=== PATIENT | female | born 1945 | race Caucasian/White ===

== ENCOUNTER 2019-07-11 08:52 | Day surgery (SDC) ==
[2019-07-03 10:14] LABS: URINE SOURCE CLEAN CATCH
[2019-07-03 10:17] LABS: BASO# 0.09 X1000 (0.0-0.2); BASO% 1.3 % (0.0-0.8); EOS# 0.26 X1000 (0.0-0.7); EOS% 3.7 % (0.0-10.0); HEMATOCRIT 46.4 % (37.0-47.0); HEMOGLOBIN 14.7 g/dL (12.0-16.0); LYMPH# 1.96 X1000 (1.2-3.4); MCH 27.9 PG (27-31); MCHC 31.7 g/dL (33-37); MCV 88.2 FL (81-99); MONO# 0.59 X1000 (0.11-0.59); MONO% 8.4 % (1.7-9.3); MPV 10.8 FL (7.4-10.4); NEUT% 58.6 % (42.2-75.2); PLT 249 X1000 (130-400); RBC 5.26 XMIL (4.2-5.4); RDW 13.9 % (11.5-14.5)
[2019-07-03 10:18] LABS: BILIRUBIN URINE NEGATIVE (NEGATIVE); BLOOD URINE NEGATIVE (NEGATIVE); COLOR YELLOW; GLUCOSE URINE NEGATIVE (NEGATIVE); KETONE URINE NEGATIVE (NEGATIVE); LEUKOCYTES URINE TRACE (NEGATIVE); NITRITE URINE NEGATIVE (NEGATIVE); PROTEIN URINE TRACE mg/dL (NEGATIVE); SP GRAVITY URINE 1.021; TURBIDITY URINE CLEAR (CLEAR); UR EPITHELIAL CELLS <10 /HPF (<10); URINE BACTERIA NEGATIVE /HPF; URINE RBC <10 /HPF (<10); URINE WBC <10 /HPF (<10); UROBILINOGEN URINE NORMAL (NORMAL)
[2019-07-03 10:23] LABS: INR 0.94; PROTIME 12.6 Seconds (11.0-16.0)
[2019-07-03 10:24] LABS: PTT 28.1 Seconds (22.3-41.8)
[2019-07-03 10:30] LABS: HEMOGLOBIN A1C 5.6 % (4.8-6.0)
[2019-07-03 11:27] LABS: AGAP 16; BUN 18 mg/dL (8-22); CALCIUM 9.5 mg/dL (8.8-10.2); CHLORIDE 99 mmol/L (98-107); COSMO 282; CREATININE 0.9 mg/dL (0.5-0.9); ESTIMATED GFR > 60; GLUCOSE 117 mg/dL (70-104); POTASSIUM 4.1 mmol/L (3.5-5.1); SODIUM 140 mmol/L (136-145); TCO2 25 mmol/L (25-35)
[2019-07-11] MEDS ORDERED: COLACE ONE (09:35)
[2019-07-11] MEDS ORDERED: PEPCID ONE (09:35)
[2019-07-11] MEDS ORDERED: REGLAN ONE (09:35)
[2019-07-11] MEDS ORDERED: CELEBREX ONE (09:35)
[2019-07-11] MEDS ORDERED: LYRICA ONE (09:35)
[2019-07-11] MEDS ORDERED: KEFZOL 1 GM/D5W 2 GM/100 ML IVPB ONE (09:36)
[2019-07-11] MEDS ORDERED: LR 1,000 ML ONE (09:36)
[2019-07-11] MEDS ORDERED: DURAMORPH ONE (09:59)
[2019-07-11] MEDS ORDERED: EXPAREL 1.3% ONE (09:59)
[2019-07-11] MEDS ORDERED: VANCOMYCIN ONE (09:59)
[2019-07-11] MEDS ORDERED: TORADOL ONE (09:59)
[2019-07-11] MEDS ORDERED: SODIUM CHLORIDE 0.9% ONE (09:59)
[2019-07-11] MEDS ORDERED: MARCAINE 0.25% PF ONE (09:59)
[2019-07-11] MEDS ORDERED: DIPRIVAN 1% ONE ×2 (10:07→11:18)
[2019-07-11] MEDS ORDERED: XYLOCAINE-MPF 2% ONE (10:08)
[2019-07-11] MEDS ORDERED: FENTANYL ONE (10:10)
[2019-07-11] MEDS: CYKLOKAPRON 1,000 MG/NS 2,000 MG/200 ML IVPB ONE ×2 (10:40→11:50)
[2019-07-11 11:32] LABS: URINE SOURCE CATH
[2019-07-11 11:35] LABS: BILIRUBIN URINE NEGATIVE (NEGATIVE); BLOOD URINE NEGATIVE (NEGATIVE); COLOR YELLOW; GLUCOSE URINE NEGATIVE (NEGATIVE); KETONE URINE NEGATIVE (NEGATIVE); LEUKOCYTES URINE NEGATIVE (NEGATIVE); NITRITE URINE NEGATIVE (NEGATIVE); PROTEIN URINE NEGATIVE (NEGATIVE); TURBIDITY URINE CLEAR (CLEAR); UROBILINOGEN URINE NORMAL (NORMAL)
[2019-07-11 11:36] LABS: UR EPITHELIAL CELLS <10 /HPF (<10); URINE BACTERIA NEGATIVE /HPF; URINE RBC <10 /HPF (<10); URINE WBC <10 /HPF (<10)
[2019-07-11] MEDS ORDERED: ZOFRAN ONE (11:49)
[2019-07-11] MEDS ORDERED: DECADRON ONE (11:49)
[2019-07-11] MEDS ORDERED: OFIRMEV 1000 MG/ISOTONIC SOLN 1,000 MG/100 ML BOTTLE ONE (11:53)
[2019-07-11] MEDS ORDERED: NS 1,000 ML ONE (12:58)
--- NOTE | 2019-07-11 13:01 | Diag Imaging Result Doc PS360 ---
EXAM: KNEE 1-2 VIEWS-LEFT INDICATION: post op TECHNIQUE: 2 views COMPARISON: None. FINDINGS: There has been a recent left knee arthroplasty. The arthroplasty hardware is in the expected position. There is no evidence of periprosthetic fracture. Anterior skin yu and a drainage catheter are in place. IMPRESSION: Satisfactory postoperative knee. Electronically signed by Conrado Hood 07/11/2019 12:58 PM
--- NOTE | 2019-07-11 13:28 | OPERATIVE NOTE ---
PROCEDURE DATE: 07/11/2019 PREOPERATIVE DIAGNOSIS: Degenerative arthritis left knee. POSTOPERATIVE DIAGNOSIS: Degenerative arthritis left knee. PROCEDURE: Left total knee arthroplasty with DePuy Attune size 4, narrow posterior stabilized femur, size 4 tibial tray, a 10 mm rotating platform tibial insert, and a 32 mm medialized anatomic patella. SURGEON: Eric Tay MD SHOT BLASTER: Yaneth Daniels who was necessary for proper retraction and manipulation of the extremity during the case, and improved efficiency. SECOND CERTIFIED PROCEDURAL CODER: Christine Estrada and Rowdy Unger RN. ANESTHESIA: Spinal. IV FLUIDS: 800 mL lactated Ringer's. ESTIMATED BLOOD LOSS: 25 mL. TOURNIQUET TIME: 75 minutes at 300 mmHg. COMPLICATIONS: None. INDICATIONS: The patient is a 74-year-old female with chronic history of worsening pain and discomfort of the left knee. Continued pain and discomfort despite appropriate nonoperative treatment. X-rays revealed degenerative osteoarthritis. Recommendation to proceed with left total knee arthroplasty was offered. Risks and benefits of surgery were explained, including the risks of anesthesia, , bleeding, infection, failure to relieve pain, postoperative stiffness, nerve injury, blood clots, and other imponderables. All questions were answered. The patient and patient's family wished to proceed with surgery. DETAILS OF PROCEDURE: Patient was taken to the operating room and underwent spinal anesthesia. After adequate anesthesia was obtained, she was placed supine on operating table. The left lower extremity was subsequently prepped and draped in usual sterile fashion. Esmarch was used to exsanguinate the left lower extremity. Tourniquet was inflated to 300 mmHg. A standard anterior incision made with skin knife. Medial and lateral skin envelopes were developed. Standard medial parapatellar arthrotomy was then performed. Patella fat pad was excised. Superior retractor was then placed. Approximately 1 cm anterior to the PCL insertion, a starting reamer was passed. Intramedullary guide with a distal femoral cutting block was pinned in position. The distal femoral cut was then performed in a standard fashion. A sizing block was placed and measured to a size 4. Corresponding pins were placed. A size 4 cutting block was pinned in position. Anterior, posterior, and chamfer cuts were then made. Attention then turned to the proximal tibia where using the extramedullary guide, the proximal tibia cutting block was pinned in position. It had good alignment and confirmed with the alignment ramiro. The proximal tibia was then resected. Medial and lateral menisci were excised. A curved osteotome was used to remove the posterior osteophytes off the distal femur. A spacer block was then placed and had good soft tissue balance both flexion and extension. Attention turned back to the proximal tibia where a size 4 tibial tray appeared to be the correct size. This was pinned in position. This followed by central reamer and a fin punch. A box cutting guide was then pinned on the distal femur. A box cut was performed. A trial femoral component was then placed. Two lug holes were drilled. Trial tibial insert was then placed and good soft tissue balancing. The patella everted and resected in a standard fashion. Patella was everted, and resected in a standard fashion. A size 32 appeared to be the correct size. Corresponding holes were drilled. A trial patella component then placed and had good patellofemoral tracking. The trial components were then removed. Copious irrigation was then performed with antibiotic pulsatile lavage. Vancomycin was mixed with cement on the back table. Sequential cementing was then performed first with the tibial tray and excess cement with a Comanche followed by the femoral component and excess cement removed with a Comanche followed by trial tibial insert in full extension. Axial loading was maintained while the cement cured. The patella component was cemented in a standard fashion. Patella clamp was placed. While cement was curing, Exparel was placed in deep soft tissue as well as the subcutaneous tissue. After cement had cured, peripheral cement was removed small osteotome. A 10 mm rotating platform tibial insert appeared to be the correct size. The trial insert was removed. Exparel was placed deep in the posterior capsule. The wound was copiously irrigated once again. A 10 mm rotating platform tibial insert was then placed. The knee was then carried through range of motion. Good range of motion and good soft tissue balance, and good patellofemoral tracking. A 1/8 Hemovac drain was placed but was not sewn in. Copious irrigation then performed once again with antibiotic pulsatile lavage. Number 1 Vicryl was used to repair the arthrotomy followed by 2- 0 Vicryl, subcutaneous tissue and skin yu. Adaptic, sterile 4 x 4's, Webril, cryo unit, Bunny wrap was applied to the left lower extremity. The patient tolerated the procedure well with no complications. Transferred to the recovery room in stable condition. cc: Eric Tay MD
[2019-07-11] MEDS ORDERED: OXY IR PO PRN ×2 (13:45)
[2019-07-11] MEDS ORDERED: ZOFRAN PO PRN (13:45)
[2019-07-11] MEDS: NS 1,000 ML IV SCH (14:33)
[2019-07-11] MEDS: REMERON PO SCH (14:33)
[2019-07-11] MEDS: NORVASC PO SCH (14:33)
[2019-07-11] MEDS: HYZAAR 50/12.5 MG PO SCH (14:33)
[2019-07-11] MEDS: TOPROL XL PO SCH (14:33)
[2019-07-11] MEDS ORDERED: FLU VACCINE IM ONE (14:49)
[2019-07-11] MEDS: TYLENOL PO SCH (18:02)
[2019-07-11] MEDS: KEFZOL 2 GM/D5W 2 GM/50 ML IVPB IV SCH (18:03)
[2019-07-11] MEDS ORDERED: ZOCOR PO SCH (21:00)
[2019-07-12] MEDS: COLACE PO SCH ×2 (01:36→08:55)
[2019-07-12] MEDS: PERIDEX MT SCH ×2 (01:38→08:55)
[2019-07-12] MEDS: KEFZOL 2 GM/D5W 2 GM/50 ML IVPB IV SCH (03:00)
[2019-07-12 06:22] LABS: HEMATOCRIT 36.2 % (37.0-47.0); HEMOGLOBIN 11.3 g/dL (12.0-16.0)
[2019-07-12 06:43] LABS: CALCIUM 8.6 mg/dL (8.8-10.2); CREATININE 1.1 mg/dL (0.5-0.9); POTASSIUM 4.2 mmol/L (3.5-5.1)
[2019-07-12] MEDS ORDERED: SYNTHROID PO SCH (07:00)
[2019-07-12] MEDS ORDERED: PRILOSEC PO SCH (07:00)
[2019-07-12 07:41] VITALS: BP 150/64
[2019-07-12] MEDS: NS 1,000 ML IV SCH (07:55)
[2019-07-12] MEDS: TYLENOL PO SCH ×2 (07:56→08:15)
[2019-07-12] MEDS: REMERON PO SCH (08:55)
[2019-07-12] MEDS: TOPROL XL PO SCH (08:56)
[2019-07-12] MEDS: HYZAAR 50/12.5 MG PO SCH (08:56)
[2019-07-12] MEDS: NORVASC PO SCH (08:56)
[2019-07-12] MEDS ORDERED: ASPIRIN PO SCH (09:00)
--- NOTE | 2019-07-12 13:49 | ORTHOPAEDICS PROGRESS NOTE ---
DATE: 07/12/2019 SUBJECTIVE: Ms Cook is a 74-year-old female who underwent a left total knee arthroplasty yesterday. She is postop day 1. She did not ambulate yesterday with physical therapy but the intent is to ambulate this morning after breakfast. She has not complained of any pain throughout the night and states she is doing very well. She has been able to move her legs without any complaints. OBJECTIVE: Her incision is clean, dry, and intact. There is a new dressing on it this morning with no drainage. She has very minimal swelling. Her calf is soft. She is able to dorsiflex and plantar flex her left foot. She is sitting comfortably in bed at this time. ASSESSMENT: Postop day 1 of a left total knee arthroplasty. PLAN: She plans to have 2 weeks of home health for physical therapy and then she will plan her outpatient rehab. We will start her on a full dose aspirin 325 mg for DVT prophylaxis. She will follow up in office on July 23. Dictated by TITA Jimenez for Eric Tay MD cc: Eric Tay MD
== END 2019-07-12 11:46 | disposition home or self-care (01) ==
LOC: OR 08:52 → 4N 08:52 → OR 07-12 11:46
PROVIDERS: ATTEND Orthopaedic Surgery Adult Reconstructive Orthopaedic Surgery